=== PATIENT | female | born 1960 | race Caucasian/White ===

== ENCOUNTER 2016-09-06 07:28 | Day surgery (SDC) | payer OTHER ==
[~2016-09-06] VITALS: Ht 167.6 cm; Wt 71.2 kg
[~2016-09-06 07:28] MED LIST: ALLERGY RELIEF10 M1 PO; ASPIRIN81 M2 PO; BIOTIN1000 MCG PO; ENALAPRIL-HCTZ1 EACH PO; NAPROSYN250 MG PO; SYNTHROID75 MCG PO; VASOTEC10 MG PO; VASOTEC5 MG PO; VYVANSE60 MG PO
[2016-09-06 08:08] VITALS: BP 140/70
[2016-09-06 12:41] VITALS: BP 140/68
[2016-09-06 15:15] VITALS: BP 153/74
[2016-09-06 17:33] LABS: HEMATOCRIT 36.7 % (36.0-46.0); MCH 29.2 PG (29.0-34.0); MCHC 34.9 G/DL (30.0-36.0); MCV 83.8 FL (83-99); MEAN PLAT.VOLUME 10.7 uM^3 (9.5-12.4); PLATELET COUNT 190 K/uL (156-360); RBC DIS.WIDTH-CV 11.9 % (11.8-14.6); RBC DIS.WIDTH-SD 36.4 % (39-53); RED BLOOD COUNT 4.38 M/uL (3.80-5.20); WHITE BLOOD COUNT 6.4 K/uL (4.1-10.2)
[2016-09-06 18:12] LABS: ANION GAP 9 MEQ/L (2-14); CHLORIDE 103 MEQ/L (99-109); GFR ESTIMATE (CALCULATED) > 59 mL/min/; GLUCOSE 207 mg/dL (70-99); POTASSIUM 4.1 MEQ/L (3.7-5.4); SAMPLE HEMOLYSIS CHECK 0; SAMPLE ICTERIC CHECK 0; SAMPLE LIPEMIA CHECK 0; SODIUM 140 MEQ/L (136-147); UREA NITROGEN (BUN) 13 mg/dL (9-23)
[2016-09-06 19:40] VITALS: BP 122/60
[2016-09-06 23:38] VITALS: BP 118/68
[2016-09-07 03:43] VITALS: BP 117/60
[2016-09-07 06:51] LABS: HEMATOCRIT 35.7 % (36.0-46.0); MCH 28.6 PG (29.0-34.0); MCHC 34.2 G/DL (30.0-36.0); MCV 83.8 FL (83-99); MEAN PLAT.VOLUME 11.4 uM^3 (9.5-12.4); PLATELET COUNT 201 K/uL (156-360); RBC DIS.WIDTH-CV 12.3 % (11.8-14.6); RBC DIS.WIDTH-SD 37.2 % (39-53); RED BLOOD COUNT 4.26 M/uL (3.80-5.20); WHITE BLOOD COUNT 7.6 K/uL (4.1-10.2)
[2016-09-07 07:17] LABS: ANION GAP 8 MEQ/L (2-14); CHLORIDE 97 MEQ/L (99-109); GFR ESTIMATE (CALCULATED) > 59 mL/min/; GLUCOSE 140 mg/dL (70-99); POTASSIUM 3.5 MEQ/L (3.7-5.4); SAMPLE HEMOLYSIS CHECK 0; SAMPLE ICTERIC CHECK 0; SAMPLE LIPEMIA CHECK 0; SODIUM 138 MEQ/L (136-147); UREA NITROGEN (BUN) 7 mg/dL (9-23)
[2016-09-07 08:00] VITALS: BP 120/64
[2016-09-07] MEDS ORDERED: TRAMADOL HCL50 MG PO (09:19)
== END 2016-09-07 09:43 | disposition home or self-care (01) ==
LOC: SDC 07:28 → 2SOUTH 11:00 → SDC 12:03 → 2EASTP 12:40 → SDC 15:00 → 2EASTP 09-07 09:43
PROVIDERS: Obstetrics & Gynecology Gynecologic Oncology
PROC: 0UT97ZZ Resection of Uterus, Via Natural or Artificial Opening (ICD-10-PCS; principal; 2016-09-06)
DX: N81.4 Uterovaginal prolapse, unspecified (principal); D06.9 Carcinoma in situ of cervix, unspecified; D25.1 Intramural leiomyoma of uterus; N80.0 Endometriosis of uterus; N83.8 Other noninflammatory disorders of ovary, fallopian tube and broad ligament; I10 Essential (primary) hypertension; F90.8 Attention-deficit hyperactivity disorder, other type; E03.9 Hypothyroidism, unspecified; Z79.82 Long term (current) use of aspirin; Z87.891 Personal history of nicotine dependence; Z88.8 Allergy status to other drugs, medicaments and biological substances
CPT/HCPCS: 80048; 85027; 88304; 88307; G0378; J0330; J0690; J1100; J1170; J1650; J2270; J2405; J2710; J3010